=== PATIENT | male | born 1970 | race Two or more races ===

== ENCOUNTER 2018-06-06 18:31 | Emergency (ER) | payer OTHER ==
[~2018-06-06] VITALS: Ht 182.9 cm; Wt 86.0 kg
[2018-06-06 18:38] VITALS: BP 112/67
== END 2018-06-06 19:11 | disposition home or self-care (01) ==
LOC: ED 18:42
DX: Z02.89 Encounter for other administrative examinations (principal); Z86.19 Personal history of other infectious and parasitic diseases
CPT/HCPCS: 36415; 80074; 87521; 87806; 99284; G0475